=== PATIENT | female | born 1960 | race Caucasian/White ===

== ENCOUNTER → 2020-09-14 | Outpatient (CLI) | payer BC, OTHER | LOC: RAD 16:19 | DX: M25.562 Pain in left knee (principal) | CPT/HCPCS: 73562 ==

== ENCOUNTER → 2021-09-28 | Outpatient (CLI) | payer BC | LOC: MAMO 09-21 11:00 | DX: Z12.31 Encounter for screening mammogram for malignant neoplasm of breast (principal) | CPT/HCPCS: 77063; 77067 ==

== ENCOUNTER 2022-03-16 15:40 | Emergency (ER) | payer BC ==
[2022-03-16 17:39] LABS: HEMOGLOBIN 13.5 gm/dl (12.3-15.3); RED BLOOD COUNT 4.57 M/UL (4.00-5.10); WHITE BLOOD COUNT 17.5 K/UL (4.5-11.0)
[2022-03-16 18:08] LABS: BUN/CREATININE RATIO 37 (0-10)
[2022-03-16] MEDS ORDERED: HYDROCODON-ACE1 EAC4 PO (20:30)
== END 2022-03-16 21:03 | disposition home or self-care (01) ==
LOC: ER1 15:40
PROVIDERS: Nurse Practitioner
DX: R55 Syncope and collapse (principal); S42.211A Unspecified displaced fracture of surgical neck of right humerus, initial encounter for closed fracture; S42.201A Unspecified fracture of upper end of right humerus, initial encounter for closed fracture; S01.81XA Laceration without foreign body of other part of head, initial encounter; I10 Essential (primary) hypertension; E11.9 Type 2 diabetes mellitus without complications; W19.XXXA Unspecified fall, initial encounter
CPT/HCPCS: 70450; 70486; 71045; 72125; 73030; 73200; 80053; 82550; 82553; 84484; 85025; 90471; 90715; 93005; 96374; 96375; 99284; J2270; J2405